=== PATIENT | female | born 1980 | race Caucasian/White ===

== ENCOUNTER 2016-10-18 10:23 | Emergency (ER) | payer BC ==
[2016-10-18 10:50] VITALS: BP 97/56
--- NOTE | 2016-10-18 10:57 | UC ---
Skin Complaint HPI - HPI Summary HPI Summary: 36 YEAR OLD FEMALE PRESENTS WITH COMPLAINS OF ABSCESS UNDER HER LEFT AXILLA. - History of Current Complaint Chief Complaint: UCGeneralIllness Time Seen by Provider: 10/18/16 10:52 Stated Complaint: RED LUMP IN ARMPIT Hx Obtained From: Patient Onset/Duration: Sudden Onset Onset Severity: Moderate - 5 Current Severity: Moderate Pain Scale Used: 0-10 Numeric - 5 Location: Discrete - LEFT AXILLA - Allergy/Home Medications Allergies/Adverse Reactions: Allergies Allergy/AdvReac Type Severity Reaction Status Date / Time Hydromorphone [From Dilaudid] Allergy VERY ITCHY Verified 10/18/16 10:43 ON BACK Penicillins Allergy Anaphylatic Verified 10/18/16 10:43 Shock Home Medications: Home Medications DULoxetine DR CAP* [Cymbalta CAP*] 1 tab PO DAILY 10/18/16 [History Confirmed ] [place] Carbonate TAB* 1 tab PO BEDTIME 10/18/16 [History Confirmed 10/18/16] Review of Systems Constitutional: Negative Skin: Other - ABSCESS LEFT AXILLA Eyes: Negative ENT: Negative Respiratory: Negative Cardiovascular: Negative Gastrointestinal: Negative Genitourinary: Negative Motor: Negative Neurovascular: Negative Musculoskeletal: Negative Neurological: Negative Psychological: Negative All Other Systems Reviewed And Are Negative: Yes PMH/Surg Hx/FS Hx/Imm Hx Previously Healthy: Yes - Surgical History Surgical History: Yes Surgery Procedure, Year, and Place: CHIARI MALFORMATION - BASE OF BRAIN. HYSTERECTOMY. APPENDECTOMY. CYST- REMOVED FROM TOES - A CHILD - Family History Known Family History: Positive: None - Social History Alcohol Use: None Substance Use Type: None Smoking Status (MU): Never Smoked Tobacco Physical Exam Triage Information Reviewed: Yes Vital Signs: Initial Vital Signs Temp 37.8 C 10/18/16 10:44 Pulse 79 10/18/16 10:44 Resp 16 10/18/16 10:44 BP 97/56 10/18/16 10:44 Pulse Ox 100 10/18/16 10:44 Eye Exam: Normal ENT Exam: Normal Dental Exam: Normal Neck exam: Normal Neck: Positive: 1 Respiratory Exam: Normal Cardiovascular Exam: Normal Abdominal Exam: Normal Musculoskeletal Exam: Normal Neurological Exam: Normal Psychological Exam: Normal Skin: Positive: Other - ABSCESS LEFT AXILLA Course/Dx - Diagnoses Provider Diagnoses: LEFT AXILLA ABSCESS Discharge - Discharge Plan Condition: Stable Disposition: HOME Prescriptions: DOXYcycline CAP(*) [DOXYcycline 100MG CAP(*)] 100 mg PO BID #14 cap Mupirocin 2% OINT* [Bactroban 2 % Oint*] 1 applic TOPICAL BID #1 tube Patient Education Materials: Hidradenitis Suppurativa (ED) Referrals: Mehreen Hackett, PULP GRINDER FEEDER [Primary Care Provider] -
== END 2016-10-18 11:02 | disposition home or self-care (01) ==
LOC: UCEAST 10:23
DX: L02.412 Cutaneous abscess of left axilla (principal); Z88.5 Allergy status to narcotic agent; Z88.0 Allergy status to penicillin
CPT/HCPCS: 99212; G0463

== ENCOUNTER 2016-11-30 10:20 | Emergency (ER) | payer SELFPAY ==
[2016-11-30 10:36] VITALS: BP 92/55
[2016-11-30] MEDS ORDERED: Tenofovir/Emtricitabine(*) TAB PO ONE ×3 (11:18→11:52)
[2016-11-30] MEDS ORDERED: Raltegravir* 400 MG TAB PO ONE ×2 (11:18→11:50)
[2016-11-30 16:18] LABS: Hematocrit 37 % (35-47); Hemoglobin 12.5 g/dl (12.0-16.0); Mean Corpuscular HGB Conc 34 g/dl (31-36); Mean Corpuscular Hemoglobin 30 pg (27-31); Mean Corpuscular Volume 90 fL (80-97); Mean Platelet Volume 11 um3 (7.4-10.4); Red Blood Count 4.12 10^6/ul (4.0-5.4); Red Cell Distribution Width 14 % (10.5-15); White Blood Count 8.3 10^3/ul (3.5-10.8)
[2016-11-30 16:39] LABS: Albumin 4.1 g/dL (3.2-5.2); BUN/Creatinine Ratio 21.3 (8-20); Calcium 8.8 mg/dL (8.6-10.3); EGFR African American 112.4 (>60); EGFR Non-African American 87.4 (>60); Globulin 2.6 g/dL (2-4); Potassium 3.7 mmol/L (3.5-5.0); Total Bilirubin 0.3 mg/dL (0.2-1.0); Total Protein 6.7 g/dL (6.4-8.9)
--- NOTE | 2016-12-02 07:49 | UC ---
Progress - Progress Note Progress Note: Please inform that the baseline tests for hepatitis B, C and HIV were negative. She should follow up as advised.
--- NOTE | 2016-12-10 16:45 | UC ---
Dari Baer Nilda, scribed for Diana Veloz DO on 11/30/16 at 1102 . Minor Trauma HPI - HPI Summary HPI Summary: This patient is a 36 year old F presenting to [facility] with a chief complaint of left index finger needle-stick injury while changing garbage at [facility] today at 1020 this morning. Patient does not know what poked her. She notified her bond manager who sent her to urgent care. Patient denies fever, chills, abd pain, cough, swelling, CP, and N/V/D. - History of Current Complaint Chief Complaint: UCGeneralIllness Stated Complaint: NEEDLE STICK Time Seen by Provider: 11/30/16 10:43 Hx Obtained From: Patient Onset/Duration: Sudden Onset, Lasting Minutes - 30 minutes ago Severity Currently: None Pain Intensity: 0 Pain Scale Used: 0-10 Numeric Mechanism Of Injury: Other - poked by a sharp at [facility] today - Allergies/Home Medications Allergies/Adverse Reactions: Allergies Allergy/AdvReac Type Severity Reaction Status Date / Time Hydromorphone [From Dilaudid] Allergy VERY ITCHY Verified 11/30/16 10:29 ON BACK Penicillins Allergy Anaphylatic Verified 11/30/16 10:29 Shock PMH/Surg Hx/FS Hx/Imm Hx Psychological History: Anxiety, Depression - Surgical History Surgical History: Yes Surgery Procedure, Year, and Place: CHIARI MALFORMATION - BASE OF BRAIN, February 2014. HYSTERECTOMY. APPENDECTOMY. CYST- REMOVED FROM TOES - A CHILD - Family History Known Family History: Positive: Hypertension, Diabetes, Other - Breast cancer and melanoma - Social History Alcohol Use: None Substance Use Type: None Smoking Status (MU): Never Smoked Tobacco Review of Systems Constitutional: Other - negative fever and chills Skin: Other - left index finger prick; negative swelling Respiratory: Other - negative cough Cardiovascular: Other - negative CP Gastrointestinal: Other - Negative abd pain, N/V/D All Other Systems Reviewed And Are Negative: Yes Physical Exam Triage Information Reviewed: Yes Appearance: Well-Appearing, No Pain Distress, Well-Nourished Vital Signs: Initial Vital Signs Temp 98.7 F 11/30/16 10:30 Pulse 72 11/30/16 10:30 Resp 16 11/30/16 10:30 BP 92/55 11/30/16 10:30 Pulse Ox 100 10/12/17 10:30 Vital Signs Reviewed: Yes Eyes: Positive: Conjunctiva Clear. Negative: Discharge ENT: Positive: Hearing grossly normal. Negative: Muffled/hoarse voice Neck exam: Normal Neck: Positive: Supple Respiratory: Positive: Lungs clear, Normal breath sounds, No respiratory distress, No accessory muscle use Cardiovascular: Positive: RRR, No Murmur Musculoskeletal Exam: Normal Neurological: Positive: Alert, Muscle Tone Normal Psychological Exam: Normal Psychological: Positive: Age Appropriate Behavior Skin: Positive: Other - Warm, Dry, Normal Color; Wound on side of left index finger Re-Evaluation - Re-Evaluation First Eval Re-Evaluation Time: 11:25 Comment: Reviewed course of treatment and testing with patient. Minor Trauma Course/Dx - Course Course Of Treatment: This patient is a 36 year old F presenting to [facility] with a chief complaint of left index finger needle-stick while changing garbage at [employer] today at 1020 this morning. Patient does not know what poked her. She notified her bond manager who sent her to urgent care. Patient denies fever, chills, abd pain, cough, swelling, CP, and N/V/D. Patients medication reviewed this visit. Patient is diagnosed with a needle stick injury. She was given prescriptions for Raltegravir and Truvada. The patient is agreeable with this plan. - Differential Dx/Diagnosis Provider Diagnoses: Needlestick on left index finger Discharge - Discharge Plan Condition: Stable Disposition: HOME Prescriptions: Raltegravir* [Isentress*] 400 mg PO BID #46 tab Tenofovir/Emtricitabine(*) [Truvada*] 1 tab PO DAILY #23 tab Patient Education Materials: Needle Stick Injuries (ED) Referrals: Axel SEWELL,Ashok Travis [Medical Doctor] - (follow up in 3-5 days) Mehreen Hackett HUMAN RESOURCES TRAINER [Primary Care Provider] - If Needed The documentation as recorded by the Dari eastman Nilda accurately reflects the service I personally performed and the decisions made by , Diana Veloz DO.
== END 2016-11-30 12:15 | disposition home or self-care (01) ==
LOC: UCEAST 10:20
DX: S61.231A Puncture wound without foreign body of left index finger without damage to nail, initial encounter (principal); W46.1XXA Contact with contaminated hypodermic needle, initial encounter; Y93.E9 Activity, other interior property and clothing maintenance; Y92.530 Ambulatory surgery center as the place of occurrence of the external cause; Y99.0 Civilian activity done for income or pay; Z11.4 Encounter for screening for human immunodeficiency virus [HIV]; F41.9 Anxiety disorder, unspecified; F32.9 Major depressive disorder, single episode, unspecified; Z88.5 Allergy status to narcotic agent; Z88.0 Allergy status to penicillin
CPT/HCPCS: 36415; 80053; 85025; 86703; 86704; 86705; 86803; 99213; G0463

== ENCOUNTER 2017-01-23 13:10 | Emergency (ER) | payer BC ==
[2017-01-23 13:18] VITALS: BP 93/60
[2017-01-23] MEDS ORDERED: Al Hydrox/Mg Hydrox/Simet LIQ* 30 ML UDC PO ONE (14:17)
[2017-01-23] MEDS ORDERED: Lidocaine 2% VISCOUS* 15 ML UDC PO ONE (14:18)
--- NOTE | 2017-01-23 14:24 | UC ---
Cardiac HPI - HPI Summary HPI Summary: ONSET OF LOWER STERNAL CHEST PAIN LAST NIGHT WITH SOME NAUSEA. PAIN RADIATED TO MID STERNUM. THOUGHT IT WAS HEARTBURN BUT IT HAS NOT RESOLVED. WORSE WITH MOVEMENT, DEEP BREATHS AND PALPATION. 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 - History of Current Complaint Chief Complaint: UCBackPain Stated Complaint: BACK PAIN Time Seen by Provider: 01/23/17 14:03 Hx Obtained From: Patient Onset/Duration: Sudden Onset, Lasting Hours, Still Present Timing: Constant Initial Severity: Moderate Current Severity: Moderate Pain Intensity: 6 Chest Pain Location: Lower Sternal Character: Sharp/Stabbing Aggravating Factor(s): Position, Movement, Deep Breaths, Other - PRESSURE Alleviating Factor(s): Nothing Associated Signs & Symptoms: Positive: Chest Pain, Nausea/Vomiting. Negative: Anxiety, Weakness, Dizziness, SOB, Syncope, Fever, Diaphoresis, Palpitations, Cough - Allergy/Home Medications Allergies/Adverse Reactions: Allergies Allergy/AdvReac Type Severity Reaction Status Date / Time Hydromorphone [From Dilaudid] Allergy VERY ITCHY Verified 11/30/16 10:29 ON BACK Penicillins Allergy Anaphylatic Verified 11/30/16 10:29 Shock PMH/Surg Hx/FS Hx/Imm Hx Psychological History: Anxiety, Depression - Surgical History Surgical History: Yes Surgery Procedure, Year, and Place: CHIARI MALFORMATION - BASE OF BRAIN, February 2014. HYSTERECTOMY. APPENDECTOMY. CYST- REMOVED FROM TOES - A CHILD - Family History Known Family History: Positive: Cardiac Disease, Hypertension, Diabetes, Other - Breast cancer and melanoma - Social History Alcohol Use: None Substance Use Type: None Smoking Status (MU): Never Smoked Tobacco Review of Systems Constitutional: Negative Respiratory: Negative Cardiovascular: Chest Pain Gastrointestinal: Nausea Genitourinary: Negative All Other Systems Reviewed And Are Negative: Yes Physical Exam Triage Information Reviewed: Yes Appearance: Well-Appearing, No Pain Distress, Well-Nourished Vital Signs: Initial Vital Signs Temp 98.4 F 01/23/17 13:14 Pulse 78 01/23/17 13:14 Resp 18 01/23/17 13:14 BP 93/60 01/23/17 13:14 Pulse Ox 100 01/23/17 13:14 Vital Signs Reviewed: Yes Eyes: Positive: Conjunctiva Clear ENT: Positive: Hearing grossly normal Neck: Positive: Supple, Nontender, No Lymphadenopathy Respiratory Exam: Normal Cardiovascular Exam: Normal Abdomen Description: Positive: Soft Musculoskeletal: Positive: No Edema, Other: - TTP DISTAL STERNUM/XIPHOID. NO SWELLING, BRUISING Neurological: Positive: Alert Psychological: Positive: Age Appropriate Behavior Skin: Negative: rashes Diagnostics - Radiology STERNUM XRAY Xray Interpretation: No Acute Changes Radiology Interpretation Completed By: ED Physician - EKG Cardiac Rate: NL Cardiac Rhythm: Sinus: Normal - 75BPM, RSR' V1/V2 Ectopy: None ST Segment: Normal Re-Evaluation - Re-Evaluation First Eval Re-Evaluation Time: 15:00 - NO CHANGE AFTER GI COCKTAIL Change: Unchanged - Assessment/Plan Course Of Treatment: PAIN IS LIKELY MUSCULOSKELETAL IN ETIOLOGY. LOW SUSPICION FOR CARDIAC CAUSES. NO IMPROVEMENT WITH GI COCKTAIL SO LESS LIKELY RELATED TO HEARTBURN. XRAY UNREMARKABLE. ADVISED OTC NSAIDS AND REST. FOLLOW-UP IF NEEDED. ER IF SX WORSEN. - Clinical Impression Provider Diagnoses: CHEST WALL PAIN Discharge - Discharge Plan Condition: Stable Disposition: HOME Patient Education Materials: Chest Wall Pain (ED) Referrals: Mehreen Hackett ELECTROPLATER [Primary Care Provider] - 1 Week Additional Instructions: YOUR SYMPTOMS ARE LIKELY MUSCULOSKELETAL IN ETIOLOGY. REST, IBUPROFEN NEEDED FOR DISCOMFORT. XRAYS TODAY UNREMARKABLE ON MY INITIAL INTERPRETATION. WILL CALL YOU IF RADIOLOGY READ DIFFERS. GO TO ER WITHOUT FAIL IF YOU DEVELOP WORSENING CHEST PAIN, SHORTNESS OF BREATH, NAUSEA, SWEATS, DIZZINESS OR ANY OTHER CONCERNING SYMPTOMS.
--- NOTE | 2017-01-23 15:06 | RAD ---
INDICATION: The xiphoid process pain. No trauma COMPARISON: None TECHNIQUE: AP, lateral, and oblique views were obtained. FINDINGS: The bony structures, joint spaces, and soft tissues are normal for age. This still note is made of a dermal piercing near the manubrium IMPRESSION: NO ACUTE BONY FINDINGS.
== END 2017-01-23 15:07 | disposition home or self-care (01) ==
LOC: UCEAST 13:10
DX: R07.89 Other chest pain (principal); G93.5 Compression of brain; Z88.0 Allergy status to penicillin; Z88.5 Allergy status to narcotic agent
CPT/HCPCS: 71120; 93005; 99212; A9270-GY; G0463

== ENCOUNTER 2017-10-09 07:03 | Emergency (ER) | payer BC ==
[2017-10-09 07:12] VITALS: BP 95/63
--- NOTE | 2017-10-09 07:39 | UC ---
Ear Complaint HPI - HPI Summary HPI Summary: ONSET OF LEFT EAR PAIN, DRAINAGE AND MUFFLED HEARING 3 DAYS AGO. NO URI SX. NO FEVER. USES QTIPS VERY AGGRESSIVELY ROUTINELY. - History of Current Complaint Chief Complaint: UCEar Stated Complaint: EAR PAIN Time Seen by Provider: 10/09/17 07:27 Hx Obtained From: Patient Onset/Duration: Gradual Onset, Lasting Days, Still Present Severity Initially: Moderate Severity Currently: Moderate Pain Intensity: 5 Pain Scale Used: 0-10 Numeric Aggravating Factors: Nothing Alleviating Factors: Nothing Associated Signs/Symptoms: Positive: Discharge, Hearing Loss. Negative: URI Symptoms - Allergies/Home Medications Allergies/Adverse Reactions: Allergies Allergy/AdvReac Type Severity Reaction Status Date / Time hydromorphone Allergy See Comment Verified 10/09/17 07:15 Penicillins Allergy Anaphylatic Verified 10/09/17 07:15 Shock Home Medications: Home Medications Biotin 1 mg PO BEDTIME 10/09/17 [History Confirmed 10/09/17] Ibuprofen TAB* [Advil TAB*] 800 mg PO Q6H PRN 10/09/17 [History Confirmed ] PMH/Surg Hx/FS Hx/Imm Hx Psychological History: Depression - Surgical History Surgical History: Yes Surgery Procedure, Year, and Place: CHIARI MALFORMATION - BASE OF BRAIN, February 2014. HYSTERECTOMY. APPENDECTOMY. CYST- REMOVED FROM TOES - A CHILD - Family History Known Family History: Positive: Cardiac Disease, Hypertension, Diabetes, Other - Breast cancer and melanoma - Social History Alcohol Use: None Substance Use Type: None Smoking Status (MU): Never Smoked Tobacco Review of Systems Constitutional: Negative ENT: Ear Ache Respiratory: Negative Cardiovascular: Negative Gastrointestinal: Negative All Other Systems Reviewed And Are Negative: Yes Physical Exam Triage Information Reviewed: Yes Appearance: Well-Appearing, No Pain Distress, Well-Nourished Vital Signs: Initial Vital Signs Temp 98.7 F 10/09/17 07:08 Pulse 77 10/09/17 07:08 Resp 16 10/09/17 07:08 BP 95/63 10/09/17 07:08 Pulse Ox 99 10/09/17 07:08 Vital Signs Reviewed: Yes Eyes: Positive: Conjunctiva Clear ENT: Positive: Hearing grossly normal, Pharynx normal, Other - LEFT TM DULL, BULGING, ERYTHEMATOUS WITH PURULENCE BEHIND IT. EAC EDEMATOUS AND ERYTHEMATOUS Neck: Positive: Supple Respiratory: Positive: No respiratory distress, No accessory muscle use Cardiovascular: Positive: Pulses Normal Abdomen Description: Positive: Soft Musculoskeletal: Positive: No Edema Neurological: Positive: Alert Psychological: Positive: Age Appropriate Behavior Skin: Negative: rashes Ear Complaint Course/Dx - Differential Dx/Diagnosis Provider Diagnoses: LEFT AOM/OTITIS EXTERNA Discharge - Sign-Out/Discharge Documenting (check all that apply): Patient Departure All imaging exams completed and their final reports reviewed: No Studies - Discharge Plan Condition: Stable Disposition: HOME Prescriptions: Cephalexin CAP* [Keflex 500 CAP*] 1,000 mg PO BID #40 cap Ciproflox/Dexameth OTIC.SUSP* [Ciprodex Otic*] 4 drop BOTH EARS BID #1 bottle Fluconazole [Diflucan] 1 tab PO ONCE #2 tab Patient Education Materials: Otitis Externa (ED), Ear Infection (ED) Referrals: FarheensMehreen, TOPPER PRESS OPERATOR [Primary Care Provider] - If Needed - Billing Disposition and Condition Condition: STABLE Disposition: Home
== END 2017-10-09 07:34 | disposition home or self-care (01) ==
LOC: UCEAST 07:03
DX: H66.92 Otitis media, unspecified, left ear (principal); H60.92 Unspecified otitis externa, left ear; Z88.5 Allergy status to narcotic agent; Z88.0 Allergy status to penicillin
CPT/HCPCS: 99212; G0463

== ENCOUNTER → 2017-12-28 18:12 | Emergency (ER) | payer BC ==
[~2017-12-28 18:12] MED LIST: Clindamycin 900 MG/D5W BAG(*) 900 MG/50 ML BAG IVPB ONE; Iohexol 300* (CONTRAST) 10 ML SDV IV ONE; Ketorolac INJ* 30 MG/ML 1 ML VIAL IV PUSH ONE; NS 0.9% 1000 ML*IV.FLUID IV ONE
--- NOTE | 2017-12-28 20:04 | ED ---
Throat Pain/Nasal Congestion - HPI Summary HPI Summary: This patient is a 37 year old F presenting to [facility] with a chief complaint of left, lower dental pain that worsened earlier today. The patient rates the pain 6/10 in severity. Symptoms aggravated by nothing. Symptoms alleviated by nothing. Patient reports chills, sore throat, nausea, and diarrhea. Patient states she fell and hit the left side of her face on 12/16, and went to [facility] ED on 12/26/17 for a mass in her mouth. Patient states the mass inside her mouth broke today and she tasted blood and something foul. Patient states she was prescribed clindamycin, but that has not alleviated her symptoms. - History of Current Complaint Chief Complaint: EDDentalPain Time Seen by Provider: 12/28/17 19:35 Hx Obtained From: Patient Onset/Duration: Sudden Onset, Lasting Days, Still Present, Worse Since - Earlier today Severity: Moderate Cough: None - Allergies/Home Medications Allergies/Adverse Reactions: Allergies Allergy/AdvReac Type Severity Reaction Status Date / Time hydromorphone Allergy See Comment Verified 12/28/17 18:30 Penicillins Allergy Anaphylatic Verified 12/28/17 18:30 Shock PMH/Surg Hx/FS Hx/Imm Hx Previously Healthy: No Endocrine/Hematology History: Denies: Hx Diabetes, Hx Thyroid Disease Cardiovascular History: Denies: Hx Hypertension, Hx Pacemaker/ICD Respiratory History: Denies: Hx Asthma, Hx Chronic Obstructive Pulmonary Disease (COPD) GI History: Denies: Hx Ulcer History: Denies: Hx Renal Disease Sensory History: Denies: Hx Hearing Aid Neurological History: Reports: Other Neuro Impairments/Disorders - CHIARI MALFORMATION Psychiatric History: Denies: Hx Panic Disorder - Surgical History Surgery Procedure, Year, and Place: CHIARI MALFORMATION - BASE OF BRAIN, February 2014. HYSTERECTOMY. APPENDECTOMY. CYST- REMOVED FROM TOES - A CHILD Infectious Disease History: No Infectious Disease History: Denies: Hx Clostridium Difficile, Hx Hepatitis, Hx Human Immunodeficiency Virus (HIV), Hx of Known/Suspected MRSA, Hx Shingles, Hx Tuberculosis, Hx Known/ Suspected VRE, Hx Known/Suspected VRSA, History Other Infectious Disease, Traveled Outside the [place] in Last 30 Days - Family History Known Family History: Positive: Cardiac Disease, Hypertension, Diabetes, Other - Breast cancer and melanoma - Social History Occupation: Employed Full-time Lives: Alone Alcohol Use: None Hx Substance Use: No Substance Use Type: Reports: None Hx Tobacco Use: No Smoking Status (MU): Never Smoked Tobacco Review of Systems Positive: Chills Positive: Dental Pain, Sore Throat Positive: Diarrhea, Nausea All Other Systems Reviewed And Are Negative: Yes Physical Exam - Summary Physical Exam Summary: VITAL SIGNS: Reviewed. GENERAL: Patient is a well-developed and nourished female who is lying comfortable in the stretcher. Patient is not in any acute respiratory distress. HEAD AND FACE: No signs of trauma. No ecchymosis, hematomas or skull depressions. No sinus tenderness. Mild redness and tenderness over the left lower chin EYES: PERRLA, EOMI x 2, No injected conjunctiva, no nystagmus. EARS: Hearing grossly intact. Ear canals and tympanic membranes are within normal limits. MOUTH: Oropharynx within normal limits. Smaller area of erythema over the buccal mucosa on the left side NECK: Supple, trachea is midline, no adenopathy, no JVD, no carotid bruit, no c- spine tenderness, neck with full ROM. CHEST: Symmetric, no tenderness at palpation LUNGS: Clear to auscultation bilaterally. No wheezing or crackles. CVS: Regular rate and rhythm, S1 and S2 present, no murmurs or gallops appreciated. ABDOMEN: Soft, non-tender. No signs of distention. No rebound no guarding, and no masses palpated. Bowel sounds are normal. EXTREMITIES: FROM in all major joints, no edema, no cyanosis or clubbing. NEURO: Alert and oriented x 3. No acute neurological deficits. Speech is normal and follows commands. SKIN: Dry and warm Triage Information Reviewed: Yes Vital Signs On Initial Exam: Initial Vitals Temp Pulse Resp BP Pulse Ox 98.2 F 72 18 112/73 98 12/28/17 18:26 12/28/17 18:26 12/28/17 18:26 12/28/17 18:26 12/28/17 18:26 Vital Signs Reviewed: Yes Diagnostics - Vital Signs Vital Signs Temp Pulse Resp BP Pulse Ox 12/28/17 18:26 98.2 F 72 18 112/73 98 - Laboratory Result Diagrams: 12/28/17 20:09 12/28/17 20:09 Lab Statement: Any lab studies that have been ordered have been reviewed, and results considered in the medical decision making process. - CT Neck CT CT Interpretation Completed By: Radiologist Summary of CT Findings: Neck CT reveals, per radiologist, periapical lucency with destruction of the outer bony cortex of the second bicuspid valve left side of the mandible. Associated soft tissue swelling. No drainable abscess. ED physician has reviewed this radiology report. EENT Course/Dx - Course Course Of Treatment: This patient is a 37 year old F presenting to [facility] with a chief complaint of left, lower dental pain that worsened earlier today. The patient rates the pain 6/10 in severity. Patient states she fell and hit the left side of her face on 12/16, and went to [facility] ED on 12/26/17 for a mass in her mouth. Patient states the mass inside her mouth broke today and she tasted blood and something foul. Physical Exam Findings: Mild redness and tenderness over the left lower chin. Smaller area of erythema over the buccal mucosa on the left side. Neck CT reveals, per radiologist, periapical lucency with destruction of the outer bony cortex of the second bicuspid valve left side of the mandible. Associated soft tissue swelling. No drainable abscess. Bloodwork obtained. In the ED course the patient was given clindamycin, Toradol, fluids, and contrast. Consult with Dr. Charlie Monique (radiologist) at 2234. Discussed results of the neck CT. Patient will be discharged with prescription for Clindamycin and Percocet and with follow up from Dentist on 12/31/2017. The patient is agreeable with this plan. - Diagnoses Provider Diagnoses: Periapical abscess - Provider Notifications Discussed Care Of Patient With: Charlie Monique Time Discussed With Above Provider: 22:35 Instructed by Provider To: Other - Consult with Dr. Escamilla (radiologist) at 2234. Discussed results of the neck CT. Discharge - Sign-Out/Discharge Documenting (check all that apply): Patient Departure - Discharge home - Discharge Plan Condition: Stable Disposition: HOME Prescriptions: Clindamycin Cap(NF) [Clindamycin Cap 300 mg Cap(NF)] 300 mg PO Q6H #30 cap oxyCODONE/Acetamin 5/325 MG* [Percocet 5/325 TAB*] 1 tab PO Q6H PRN #10 tab MDD 4 PRN Reason: Pain (Dental) Patient Education Materials: Dental Abscess (ED), Clindamycin (By mouth), Oxycodone/Acetaminophen (By mouth) Referrals: Mehreen Hackett, SENIOR SAFETY MANAGEMENT CONSULTANT [Primary Care Provider] - 3 Days Additional Instructions: FOLLOW UP WITH YOUR DENTIST ON SUNDAY. RETURN TO THE EMERGENCY DEPARTMENT FOR NEW OR WORSENING SYMPTOMS. - Attestation Statements Document Initiated by Scribe: Yes Documenting Scribe: Katerina Romero Provider For Whom Scribe is Documenting (Include Credential): Dr. Atif Cardozo MD Scribe Attestation: I, Katerina Romero, scribed for Dr. Atif Cardozo MD on 12/28/17 at 2255.
[2017-12-28 20:38] LABS: ABS Basophils 0 10^3/ul (0-0.2); ABS Eosinophils 0.1 10^3/ul (0-0.6); ABS Lymphocytes 1.2 10^3/ul (1.0-4.8); ABS Monocytes 0.5 10^3/ul (0-0.8); ABS Neutrophils 4.7 10^3/ul (1.5-7.7); ABS Nucleated RBC 0 10^3/ul; Eosinophil % 1.3 % (0-6); Hematocrit 36 % (35-47); Hemoglobin 12.2 g/dl (12.0-16.0); Lymphocyte % 18.5 % (25-47); Mean Corpuscular HGB Conc 34 g/dl (31-36); Mean Corpuscular Hemoglobin 30 pg (27-31); Mean Corpuscular Volume 89 fL (80-97); Nucleated Red Blood Cells % 0.1; Platelet Count 242 10^3/ul (150-450); Red Blood Count 4.07 10^6/ul (4.00-5.40); Red Cell Distribution Width 13 % (10.5-15); White Blood Count 6.5 10^3/ul (3.5-10.8)
[2017-12-28 20:54] LABS: EGFR Non-African American 81.9 (>60)
[2017-12-28 23:08] VITALS: BP 91/52
== END | disposition home or self-care (01) ==
LOC: ED 18:12
DX: K04.7 Periapical abscess without sinus (principal); K08.89 Other specified disorders of teeth and supporting structures; R19.7 Diarrhea, unspecified; R11.0 Nausea
CPT/HCPCS: 36415; 70491; 80053; 85025; 86140; 87040; 96361; 96365; 96375; 99282; J1885; Q9967

== ENCOUNTER → 2018-07-11 06:23 | Day surgery (SDC) | payer BC ==
[~2018-07-11 06:23] MED LIST changes: +Bupivacaine 0.5% SDV PF* 30ML VIAL ONE; -Clindamycin 900 MG/D5W BAG(*) 900 MG/50 ML BAG IVPB ONE; -Iohexol 300* (CONTRAST) 10 ML SDV IV ONE; -Ketorolac INJ* 30 MG/ML 1 ML VIAL IV PUSH ONE; +Lidocaine 1% INJ* 10 MG/ML 30 ML SDV ONE; +Lidocaine 1% MPF wEPI 200,000* 30 ML SDV ONE; -NS 0.9% 1000 ML*IV.FLUID IV ONE; +Sodium Bicarbonate 8.4% IV* 50 ML VIAL ONE
[2018-07-11 08:26] VITALS: BP 101/71
--- NOTE | 2018-07-11 10:48 | OP ---
DATE OF OPERATION: 07/11/18 - [facility] DATE OF : 80 SURGEON: Phil Sumner DPM MOTIVATIONAL SPEAKER: None. ANESTHESIA: Local. PRE-OP DIAGNOSES: 1. Painful chronic skin lesion at the lateral nailfold with ingrown nail at the lateral fifth right toe. 2. Painful bone spur, fifth right toe. POST-OP DIAGNOSES: 1. Painful chronic skin lesion at the lateral nailfold with ingrown nail at the lateral fifth right toe. 2. Painful bone spur, fifth right toe. OPERATIVE PROCEDURE: 1. Excision of lateral nailfold encompassing skin lesion, fifth right toe. 2. Excision of phalangeal bone spur from the area of fifth right toe. PATHOLOGY: Excised skin wedge from fifth right toe. HEMOSTASIS: Pneumatic ankle tourniquet. ESTIMATED BLOOD LOSS: Less than 1 cc. INDICATIONS: The patient with recurrent and very painful deep cord skin lesion at the lateral aspect at the base of the fifth right toenail unit. Attempt at previous cautery was unsuccessful. Radiographs demonstrates some bony hypertrophy adjacent to the area as well. The patient opts for surgery at this time to attempt to remove the painful lesion, reduce pain, and improve ability where she can walk. DESCRIPTION OF PROCEDURE: The patient was brought to the operating room, placed on the operating room table in the supine position. The right foot was prepped and digital block was performed with a 1:1 mixture of 1% lidocaine plain and 0.5% Marcaine plain. The right foot was then prepped and draped in a standard fashion. Next, after assuring adequate anesthesia, a linear incision was made encompassing lateral portion of the nail unit and a semi-elliptical incision was then made encompassing the deep cord skin lesion at the lateral base of the nail unit. The incision was down to deep fascia and the wedge was resected and sent off the field. With some dissection exposing the lateral base of the distal phalanx, a straight bone cutter was used to resect hypertrophic bone and a small side cutting david was then used to further reduce bony hypertrophy. The surgical site was flushed with copious amounts of normal sterile saline. Next, the subcutaneous tissue was reapproximated with 4-0 Vicryl and skin was then closed with 5-0 nylon. Xeroform gauze was applied across the incision and then a very bulky sterile dressing was applied to the right foot and secured about the ankle and secured with light Coban wrap. Prior to dressing, the pneumatic ankle tourniquet was deflated and hyperemic response was noted to all digits of the right foot. Having appeared to have tolerated the procedure and the anesthesia well, the patient was transported via cart from the operating room to Recovery in satisfactory condition with capillary refill less than 3 seconds to the right foot. [id number]/[facility] #: [id number]
== END | disposition home or self-care (01) ==
LOC: OREAST 06:23
PROVIDERS: ATTEND Podiatrist Foot Surgery
DX: M77.51 Other enthesopathy of right foot and ankle (principal); L60.0 Ingrowing nail; L90.5 Scar conditions and fibrosis of skin; F41.8 Other specified anxiety disorders
CPT/HCPCS: 88304; J2001; J3490